=== PATIENT | male | born 1955 | race Caucasian/White ===

== ENCOUNTER 2017-03-12 15:26 | Outpatient (CLI) | payer BC | END 2017-03-12 15:27 | disposition home or self-care (01) | LOC: CTENTCT 15:26 | PROVIDERS: ATTEND Otolaryngology Plastic Surgery within the Head & Neck | DX: J32.9 Chronic sinusitis, unspecified (principal) | CPT/HCPCS: 70486 ==

== ENCOUNTER 2017-05-13 08:13 | Day surgery (SDC) | payer BC ==
[2017-05-12 12:52] VITALS: BMI 42.5
[2017-05-13] MEDS ORDERED: Oxymetazoline HCl 0.05% ( 15 ML ) ONE ×2 (10:25→11:50)
[2017-05-13] MEDS ORDERED: Midazolam HCl 2 mg/2 ml Vial ONE (10:59)
[2017-05-13 11:10] LABS: Anion Gap 13 mmol/L (10-20); BUN (Urea Nitrogen) 15 mg/dL (8.4-25.7); Calc. Creatinine Clearance 211 mL/min (70-130); Calcium 9.8 mg/dL (7.8-10.44); Carbon Dioxide 25 mmol/L (23-31); Chloride 104 mmol/L (98-107); Estimated GFR-MDRD Greater than 90; Glucose 108 mg/dL (80-115); Potassium 4.2 mmol/L (3.5-5.1); Sodium 138 mmol/L (136-145)
[2017-05-13] MEDS ORDERED: Fentanyl 250 MCG/5 ML VIAL ONE (11:23)
[2017-05-13] MEDS ORDERED: Lidocaine 1% w/Epinephrine 1:200K 30 ML VIAL ONE (11:50)
[2017-05-13] MEDS ORDERED: Succinylcholine Chloride 20 MG/ML 10 ml SYRINGE FS ONE (13:09)
[2017-05-13] MEDS ORDERED: PHENYLEPHRINE-NS 100 MCG/ML 10 ML SYRINGE ONE (13:09)
[2017-05-13] MEDS ORDERED: Ondansetron HCl/PF 4 MG/2 ML Vial ONE (13:09)
[2017-05-13] MEDS ORDERED: PROPOFOL 200 MG/20 ML VIAL ONE (13:09)
[2017-05-13] MEDS ORDERED: Dexamethasone 20 MG/5 ML VIAL ONE (13:09)
[2017-05-13] MEDS ORDERED: Lidocaine 1% PF 5 ML VIAL ONE (13:09)
[2017-05-13] MEDS ORDERED: Morphine 4 MG/ML VIAL ONE (14:25)
[2017-05-13] MEDS ORDERED: Hydrocodone-Acetamin 15 ML UDCUP ONE (15:28)
--- NOTE | 2017-05-14 13:25 | OP ---
DATE OF PROCEDURE: 05/13/2017 PREOPERATIVE DIAGNOSES: 1. Chronic rhinosinusitis. 2. Bilateral inferior turbinate hypertrophy. 3. Nasal obstruction. POSTOPERATIVE DIAGNOSES: 1. Chronic rhinosinusitis. 2. Bilateral inferior turbinate hypertrophy. 3. Nasal obstruction. PROCEDURES: 1. Bilateral endoscopic sinus surgery, total ethmoidectomies. 2. Bilateral endoscopic sinus surgery, maxillary antrostomies. 3. Bilateral endoscopic sinus surgery, frontal sinus. 4. Bilateral endoscopic sinus surgery, sphenoidotomies. 5. Bilateral inferior turbinate submucosal resection. SURGEON: Anam Jones M.D. ESTIMATED BLOOD LOSS: 20 mL. COMPLICATIONS: None. ANESTHESIA: GETA. DESCRIPTION OF PROCEDURE: The patient was taken to the operating room and placed supine on the table . General endotracheal anesthesia obtained by the Anesthesia staff. Following this, tube was secure d in the left lower lip and the patient was then placed in the beach chair position. Following this, Afrin pledgets were placed in the nasal cavity as the patient was prepped and draped for standard na felicia procedure. Following this, 1% lidocaine with 1:100,000 epinephrine was then injected into the in ferior turbinates via a 27-gauge needle as well as the lateral nasal wall of the middle turbinates. Following this, the 0-degree scope was advanced the middle turbinate. The middle turbinates were gen tly medialized using a [place] elevator, exposing the uncinate process bilaterally. Following this, th e uncinate process was anteriorly fractured using the ball-ended probe and was removed using the [facility] forceps and straight microdebrider. Following this, the ethmoidal bulla was identifie d bilaterally and then was punctured on its medial and inferior aspect and was removed using the [facility]. The grand lamella was then identified and was punctured into the posterior ethmo idal cells using the 0-degree microdebrider. Working from posterior to anterior, the ethmoidal cells were opened in a mucosal-sparing technique. Following this, the sphenoid sinus ostia was identified just medial and inferior to the attachment of the superior turbinate to the posterior nasal wall. T he ostia was noted to be nearly completely stenotic. This ostia was then punctured using the 0-degre e microdebrider bilaterally and was widened medially and inferiorly using the microdebrider. Followi juanita this, a 45-degree scope and the curved microdebrider were used to further identify the frontal sin us ostia and gently widened the ostia medially and anteriorly. Following this, inferior turbinates w ere then punctured with submucosal microdebrider and submucosal resection was performed of the anteri or and inferior portions of the inferior turbinates bilaterally. Following this, the nasal cavity wa s irrigated. MeroPacks were placed into the nasal cavity. The patient tolerated the procedure well.
== END 2017-05-13 16:00 | disposition home or self-care (01) ==
LOC: SDC 08:13
PROVIDERS: ATTEND Otolaryngology Plastic Surgery within the Head & Neck
PROC: 099R8ZZ Drainage of Left Maxillary Sinus, Via Natural or Artificial Opening Endoscopic (ICD-10-PCS; principal; 2017-05-13)
PROC: 099W8ZZ Drainage of Right Sphenoid Sinus, Via Natural or Artificial Opening Endoscopic (ICD-10-PCS; principal; 2017-05-13)
PROC: 099X8ZZ Drainage of Left Sphenoid Sinus, Via Natural or Artificial Opening Endoscopic (ICD-10-PCS; principal; 2017-05-13)
PROC: 099S8ZZ Drainage of Right Frontal Sinus, Via Natural or Artificial Opening Endoscopic (ICD-10-PCS; principal; 2017-05-13)
PROC: 099T8ZZ Drainage of Left Frontal Sinus, Via Natural or Artificial Opening Endoscopic (ICD-10-PCS; principal; 2017-05-13)
PROC: 09TL8ZZ Resection of Nasal Turbinate, Via Natural or Artificial Opening Endoscopic (ICD-10-PCS; principal; 2017-05-13)
PROC: 099Q8ZZ Drainage of Right Maxillary Sinus, Via Natural or Artificial Opening Endoscopic (ICD-10-PCS; principal; 2017-05-13)
PROC: 09TV8ZZ Resection of Left Ethmoid Sinus, Via Natural or Artificial Opening Endoscopic (ICD-10-PCS; principal; 2017-05-13)
PROC: 09TU8ZZ Resection of Right Ethmoid Sinus, Via Natural or Artificial Opening Endoscopic (ICD-10-PCS; principal; 2017-05-13)
DX: J32.9 Chronic sinusitis, unspecified (principal); J34.3 Hypertrophy of nasal turbinates; J34.89 Other specified disorders of nose and nasal sinuses; J30.9 Allergic rhinitis, unspecified; I10 Essential (primary) hypertension; E78.5 Hyperlipidemia, unspecified; K21.9 Gastro-esophageal reflux disease without esophagitis; I67.1 Cerebral aneurysm, nonruptured; Z88.8 Allergy status to other drugs, medicaments and biological substances; Z79.51 Long term (current) use of inhaled steroids; Z79.899 Other long term (current) drug therapy
CPT/HCPCS: 80048; 93005; 93010; 96374; J1100; J2001; J2250; J2270; J2405; J2704; J3010

== ENCOUNTER 2017-08-25 08:23 | Outpatient (CLI) | payer BC ==
--- NOTE | 2017-08-25 09:55 | CT ---
CT HEAD NONCONTRAST CTA [place] WITH 3D VOLUME RENDERING: CLINICAL HISTORY: Intracranial hemorrhage, fall. COMPARISON: Reference is made to prior CTA head 12/05/11. FINDINGS: There is no evidence of ventriculomegaly, mass effect, midline shift, or acute intracranial hemorrhag e. There is minimal mucosal thickening of the paranasal sinuses and decreased pneumatization of righ t mastoid air cells. Prior bilateral maxillary antrostomy is noted. The previously described anterior communicating artery aneurysm has slightly increased in volume now measuring approximately 3-4 mm in size comparing to 2 mm size range on the prior exam. The bilateral middle cerebral arteries and anterior cerebral arteries are patent. Small-caliber bilateral POLICE MAGISTRATE rem ain patent. The imaged vertebrobasilar system reveals no significant stenosis. Otherwise, no additi onal significant interval detrimental change from prior exam. IMPRESSION: Slight interval size progression of anterior communicating artery aneurysm, now measuring 3-4 mm. Re commend continued imaging followup. POS: YAW
== END 2017-08-25 08:24 | disposition home or self-care (01) ==
LOC: TBSIIMAG 08:23
PROVIDERS: ATTEND Neurological Surgery
DX: I67.1 Cerebral aneurysm, nonruptured (principal)
CPT/HCPCS: 70496; 82565

== ENCOUNTER 2017-12-21 06:01 | Day surgery (SDC) | payer BC ==
[2017-12-18 09:13] VITALS: BMI 41.2
[2017-12-21] MEDS ORDERED: EPINEPHrine 1 MG/ML AMP ONE (06:39)
[2017-12-21] MEDS ORDERED: Lidocaine 1% w/Epinephrine 1:100K 30 ML VIAL ONE (06:39)
[2017-12-21] MEDS ORDERED: Bacitracin Zinc Ointment 30 gm TUBE ONE (06:39)
[2017-12-21] MEDS ORDERED: Bupivacaine/Epinephrine 0.25% 30 ML VIAL ONE (06:39)
[2017-12-21] MEDS ORDERED: Sodium Chloride 0.9% 10 ML ONE (06:39)
[2017-12-21] MEDS ORDERED: Fentanyl 250 MCG/5 ML VIAL ONE (09:18)
[2017-12-21] MEDS ORDERED: Gelfilm 1 EA Packet ONE (10:46)
--- NOTE | 2017-12-21 12:05 | OP ---
DATE OF PROCEDURE: 12/21/2017 PREOPERATIVE DIAGNOSIS: Left tympanic membrane perforation. PROCEDURE: 1. Left tympanoplasty. 2. Microscopic surgical procedure. POSTOPERATIVE DIAGNOSIS: Left tympanic membrane perforation. SURGEON: Miles Correa M.D. ANESTHESIA: General. COMPLICATIONS: None. ESTIMATED BLOOD LOSS: None. SPECIMENS: None. DRAWBRIDGE OPERATOR: None. DISPOSITION: Stable to recovery room. SUMMARY: After lengthy discussion about previous reactions to epinephrine, I felt that this was prob ably secondary to nasal cocaine intraoperatively. The patient underwent a left transcanal tympanopla sty. Originally felt we may need to do a postauricular approach with a mastoidectomy, but we were ab le to do an underlay graft with all edges approximated 360 degrees and the malleus and incus moved we ll. The scutum was not curetted. The chorda tympani unmolested. However, could see the malleus, in cus and stapes suprastructure mobile with palpation. Underlay technique with section of the tensor t ympani. PROCEDURE IN DETAIL: 1. Left tympanoplasty: After informed consent was obtained, the patient taken to the operating room and placed in the supine position. General endotracheal anesthetic was administered. Table was rot ated 180 degrees. Left ear was injected postauricular and transcanal with 0.25% Marcaine with epinep hrine. With the left ear prepped and draped in a sterile fashion the microscope was brought in view and irrigated with copious amounts of saline in the ear canal. There had been a cotton ball placed d uring the prep phase. Injected the vascular strip with 1% lidocaine with epinephrine, approximately 1 mL. Transcanal, the tympanomeatal flap was elevated from 12 and 6 o'clock position, carried down t o the annulus, but not entered the middle ear. Using a Rajan needle to rim the perforation and then we placed a clamp closed to the canal was at the 11 o'clock position. The bougie scissors cut the st apedial tendon and the graft which had been harvested from a super auricular incision placed in under lay over Gelfilm and Gelfoam lateral. There was only a small amount of squamous tissue noted under t he malleus that was removed as well. With the tympanomeatal flap totally elevated just prior to plac ement of Gelfilm and Gelfoam and the graft could see the middle ear space to be clean and dry. With the flap placed back down had excellent 360 degree coverage with a flap bulging around the margins of the perforation throughout. Gelfilm and Gelfoam was placed lateral. Bacitracin cotton ball applied . The super auricular incision had been closed with 3-0 Monocryl and Dermabond for the skin. 2. Microscopic surgical procedure: Throughout the entirety of the operation microscope was an integ ral part of procedure using to 14 power of high illumination. The patient tolerated this procedure well and was turned over to Anesthesia in stable condition.
[2017-12-21] MEDS ORDERED: HYDROcodone/Acetaminophen 5/325 mg Tablet ONE (13:11)
[2017-12-21] MEDS ORDERED: Ondansetron ODT 4 MG TAB ONE (13:15)
--- NOTE | 2017-12-22 08:48 | EKG ---
Test Reason : PREOP Blood Pressure : / mmHG Vent. Rate : 080 BPM Atrial Rate : 091 BPM P-R Int : 190 ms QRS Dur : 088 ms QT Int : 378 ms P-R-T Axes : 045 003 022 degrees QTc Int : 435 ms Sinus rhythm with Premature atrial complexes Otherwise normal ECG When compared with ECG of 13-MAY-2017 10:50, Vent. rate has increased BY [address] Lyndon ASHLEY ([id number]) on 12/22/2017 8:48:08 AM Referred By: SARAI Confirmed By:DR. Lyndon ASHLEY
== END 2017-12-21 13:30 | disposition home or self-care (01) ==
LOC: SDC 06:01
PROVIDERS: ATTEND Otolaryngology Otology & Neurotology
PROC: 09B1XZZ Excision of Left External Ear, External Approach (ICD-10-PCS; principal; 2017-12-21)
PROC: 09R877Z Replacement of Left Tympanic Membrane with Autologous Tissue Substitute, Via Natural or Artificial Opening (ICD-10-PCS; principal; 2017-12-21)
DX: H72.92 Unspecified perforation of tympanic membrane, left ear (principal); Z79.51 Long term (current) use of inhaled steroids; Z79.899 Other long term (current) drug therapy; Z88.8 Allergy status to other drugs, medicaments and biological substances
CPT/HCPCS: 93005; 93010; J0171; J2001; J3010; J3490; Q0162

== ENCOUNTER 2018-04-21 01:21 | Outpatient (CLI) | payer BC ==
[2018-04-21 12:06] LABS: #Basophils 0.1 thou/uL (0.0-0.2); #Eosinphils 0.2 thou/uL (0.0-0.7); #Lymphocytes 1.7 thou/uL (1.20-3.40); #Monocytes 0.8 thou/uL (0.11-0.59); #Neutrophils 4.2 thou/uL (1.40-6.50); %Basophils 0.8 % (0.0-1.0); %Eosinophils 3.2 % (0.0-10.0); %Lymphocytes 23.9 % (21.0-51.0); %Monocytes 11.5 % (0.0-10.0); %Neutrophils 60.7 % (42.0-75.0); Hemoglobin 15.1 g/dL (14.0-18.0); Mean Corpuscular HGB CONC 32.9 g/dL (32.0-36.0); Mean Corpuscular Hemoglobin 30.7 pg (27.0-31.0); Mean Corpuscular Volume 93.3 fL (78.0-98.0); Platelet Count 165 thou/uL (130-400); RBC Distribution Width 13.4 % (11.5-14.5); Red Blood Cell (RBC) Count 4.92 mill/uL (4.70-6.10); White Blood Cell (WBC) Count 6.9 thou/uL (4.8-10.8)
[2018-04-21 12:27] LABS: Anion Gap 11 mmol/L (10-20); BUN (Urea Nitrogen) 14 mg/dL (8.4-25.7); Calc. Creatinine Clearance 0 mL/min (70-130); Calcium 9.7 mg/dL (7.8-10.44); Carbon Dioxide 27 mmol/L (23-31); Chloride 105 mmol/L (98-107); Estimated GFR-MDRD Greater than 90; Glucose 108 mg/dL (80-115); Potassium 4.1 mmol/L (3.5-5.1); Sodium 139 mmol/L (136-145)
--- NOTE | 2018-04-21 18:45 | EKG ---
Test Reason : Blood Pressure : / mmHG Vent. Rate : 054 BPM Atrial Rate : 054 BPM P-R Int : 180 ms QRS Dur : 086 ms QT Int : 428 ms P-R-T Axes : 034 010 020 degrees QTc Int : 405 ms Poor data quality, interpretation may be adversely affected Sinus bradycardia with marked sinus arrhythmia Otherwise normal ECG When compared with ECG of 21-DEC-2017 06:24, Premature atrial complexes are no longer Present Vent. rate has decreased BY [address] Newton MCGINNIS ([id number]) on 04/21/2018 6:45:01 PM Referred By: LALA Confirmed By:DR. Newton MCGINNIS
== END 2018-04-21 01:22 | disposition home or self-care (01) ==
LOC: LABBT 01:21
PROVIDERS: ATTEND Orthopaedic Surgery
DX: Z01.818 Encounter for other preprocedural examination (principal); S83.207A Unspecified tear of unspecified meniscus, current injury, left knee, initial encounter
CPT/HCPCS: 80048; 85025; 93005; 93010

== ENCOUNTER 2018-04-23 07:27 | Day surgery (SDC) | payer BC ==
[2018-04-21 10:11] VITALS: BMI 41.7
[2018-04-23] MEDS ORDERED: PROPOFOL 20 ML ONE (07:46)
[2018-04-23] MEDS ORDERED: Fentanyl 100 MCG/2 ML VIAL ONE ×3 (08:24→11:25)
[2018-04-23] MEDS ORDERED: Lidocaine 2% Jelly 5 ML TUBE ONE (08:24)
[2018-04-23] MEDS ORDERED: Ondansetron PF 4 MG/2 ML Vial ONE ×2 (09:13→17:07)
[2018-04-23] MEDS ORDERED: Meperidine HCl/PF 25 MG/ML VIAL ONE (10:56)
[2018-04-23] MEDS ORDERED: Bupivacaine HCl 0.5%/Epinephrine 1:200,000/PF 30 ml Vial ONE (16:34)
[2018-04-23] MEDS ORDERED: Lidocaine 2% w/Epinephrine 1:200K 20 ML VIAL ONE (16:34)
[2018-04-23] MEDS ORDERED: Lidocaine 1% PF 5 ML VIAL ONE (17:07)
[2018-04-23] MEDS ORDERED: PROPOFOL 200 MG/20 ML VIAL ONE (17:07)
--- NOTE | 2018-04-26 10:11 | OP ---
DATE OF PROCEDURE: 04/23/2018 PREOPERATIVE DIAGNOSIS: Left knee lateral meniscus tear with parameniscal cyst. POSTOPERATIVE DIAGNOSIS: Left knee lateral meniscus tear with parameniscal cyst. PROCEDURE PERFORMED: 1. Left knee arthroscopy with partial lateral meniscectomy. 2. Open repair of lateral meniscus. BATTERY WRECKER OPERATOR: None. BLOOD LOSS: Minimal. COMPLICATIONS: None. ANESTHESIA: He had general anesthetic as well as local knee block. DISPOSITION: He went to recovery room in stable condition. IMPLANTS: There were no implants. INDICATIONS: A 62-year-old male comes in complaining of significant pain, swelling and catching of the knee. He has failed nonoperative treatment and wanted to have surgery. DESCRIPTION OF PROCEDURE: After all proper consent forms were explained and signed, he was taken back to the operative room and at this time was given general anesthetic. Once the anesthesia was appropriate, tourniquet was placed in the left thigh and leg was placed in the arthroscopic leg hardy. The limb was prepped draped in standard surgical fashion. The limb was exsanguinated and tourniquet taken up to 300 mmHg. Inferolateral portal was established. Scope was placed into the knee joint. A needle localization technique was then used to make our medial portal. Diagnostic arthroscopy commenced in the notch. ACL and PCL were probed, found to be intact. The medial compartment showed the femur, tibia and meniscus upon probing to be intact. There was a small area on the tibial plateau, which had some grade 2 chondromalacia. No significant treatment was needed. Lateral compartment was evaluated. Significant degenerative tear including horizontal cleavage tear of the body of the lateral meniscus was noted. Partial meniscectomy was performed of the unstable tissue and the shaver was introduced into the cleavage component. There was a significant amount of oily fluid, which was evacuated from the joint, which was felt to be from the cyst. A needle was then placed percutaneously from the outside portion of the skin using transillumination directly into the horizontal cleavage tear. This was used for later open repair marking. At this time, we then did also note a small cyst along the anterior horn of the lateral meniscus. This also was debrided with a shaver to get rid of this. The patellofemoral joint showed the trochlear to be in good condition. The patella had some grade 2 chondromalacia. No loose bodies were noted in the gutters nor was there any loose bodies in the suprapatellar pouch. At this time, scope was removed and the knee was drained. We then turned our attention to the open repair. Incision was made with a 15 blade obliquely along the lateral joint line where the needle had been placed. We cut down through skin. Bovie was used to clear any brisk venous bleeding. We then got to the IT band and opened this up. We this from the underlying tissue. We were then able to follow the hole from the needle directly into the horizontal cleavage component. Joint fluid confirmed that this went directly into the joint. This tissue was debrided sharply of any of the yellow poor appearing tissue and at this time, we then took a #1 Ethibond suture and placed multiple horizontal sutures through the outside portion of the meniscus and the capsule. Once this was done, we did look inside the knee and upon probing found that our horizontal cleavage component had been closed down. Again, the scope was removed. The knee was drained for one more time. We then thoroughly irrigated our wound along the lateral aspect of the knee. This was dried. The IT band was closed with 2-0 Vicryl and nylon sutures were used on skin. Portals were closed with simple nylon stitch as well. Bulky sterile dressing was applied at this time. The patient was then awakened and taken to recovery room in stable condition. All counts were correct at the end of the case and he did receive preoperative IV antibiotics. Job ID: [id number]
== END 2018-04-23 13:25 | disposition home or self-care (01) ==
LOC: SDC 07:27
PROVIDERS: ATTEND Orthopaedic Surgery
PROC: 0SQD0ZZ Repair Left Knee Joint, Open Approach (ICD-10-PCS; principal; 2018-04-23)
PROC: 0SBD4ZZ Excision of Left Knee Joint, Percutaneous Endoscopic Approach (ICD-10-PCS; principal; 2018-04-23)
DX: S83.282A Other tear of lateral meniscus, current injury, left knee, initial encounter (principal); M25.862 Other specified joint disorders, left knee; M22.42 Chondromalacia patellae, left knee; G89.18 Other acute postprocedural pain; I10 Essential (primary) hypertension; E78.5 Hyperlipidemia, unspecified; K21.9 Gastro-esophageal reflux disease without esophagitis; Z79.51 Long term (current) use of inhaled steroids; Z79.899 Other long term (current) drug therapy; Z88.8 Allergy status to other drugs, medicaments and biological substances; Z98.890 Other specified postprocedural states
CPT/HCPCS: J0670; J2001; J2175; J2405; J2704; J3010

== ENCOUNTER 2018-05-12 10:09 | Day surgery (SDC) | payer BC ==
[2018-05-11 15:57] VITALS: BMI 41.7
[2018-05-12] MEDS ORDERED: Oxymetazoline HCl 0.05% ( 15 ML ) ONE ×2 (11:17→12:56)
[2018-05-12 12:02] LABS: Anion Gap 12 mmol/L (10-20); BUN (Urea Nitrogen) 17 mg/dL (8.4-25.7); Calc. Creatinine Clearance 219 mL/min (70-130); Calcium 9.7 mg/dL (7.8-10.44); Carbon Dioxide 25 mmol/L (23-31); Chloride 107 mmol/L (98-107); Estimated GFR-MDRD Greater than 90; Glucose 115 mg/dL (80-115); Sodium 140 mmol/L (136-145)
[2018-05-12] MEDS ORDERED: Lidocaine 1% w/Epinephrine 1:100K 20 ML VIAL ONE (12:56)
[2018-05-12] MEDS ORDERED: Lidocaine 1% (PF) 30 ML VIAL ONE (13:02)
[2018-05-12] MEDS ORDERED: Midazolam HCl 2 mg/2 ml Vial ONE (13:06)
[2018-05-12] MEDS ORDERED: Fentanyl 100 MCG/2 ML VIAL ONE ×2 (13:06→14:10)
[2018-05-12] MEDS ORDERED: Dexamethasone 20 MG/5 ML VIAL ONE (16:04)
[2018-05-12] MEDS ORDERED: Ondansetron PF 4 MG/2 ML Vial ONE (16:04)
[2018-05-12] MEDS ORDERED: PROPOFOL 200 MG/20 ML VIAL ONE (16:04)
[2018-05-12] MEDS ORDERED: Lidocaine 1% PF 5 ML VIAL ONE (16:04)
--- NOTE | 2018-05-13 08:41 | OP ---
DATE OF PROCEDURE: 05/12/2018 PREOPERATIVE DIAGNOSES: 1. Chronic rhinosinusitis. 2. Bilateral nasal adhesions. 3. Bilateral eustachian tube dysfunction. POSTOPERATIVE DIAGNOSES: 1. Chronic rhinosinusitis. 2. Bilateral nasal adhesions. 3. Bilateral eustachian tube dysfunction. PROCEDURES PERFORMED: 1. Bilateral endoscopic sinus surgery, total ethmoidectomies with removal of tissue. 2. Bilateral endoscopic sinus surgery, frontal sinusotomies with removal of tissue. 3. Nasopharyngoscopy. ESTIMATED BLOOD LOSS: 20 mL. COMPLICATIONS: None. ANESTHESIA: GETA. DESCRIPTION OF PROCEDURE: The patient was taken to the operating room, placed supine on the table. General endotracheal anesthesia was obtained by the Anesthesia staff. Tube was secured in the left lower lip. Then, the patient was placed in a beach chair position. Following this, Afrin pledgets were placed in the nasal cavity as the patient was prepped and draped for standard nasal procedures. Following this, the 0-degree scope was then advanced in the nasal cavity. 1% lidocaine with 1:100,000 epinephrine was made into the lateral nasal wall and middle turbinates bilaterally. There was nasal adhesions and scar bands that had occurred in the anterior ethmoidal area causing scarring and obliteration of some of the anterior ethmoidal cells. There was also some spongy osteomyelitis bone present in these areas as well. Using 0 degree of microdebrider and a curved microdebrider, the anterior ethmoidal cells were reopened as well as the posterior ethmoidal cells. Cutting any scar bands that were identified and also removal of hypertrophic bone tissue. Following this, 45 degree scope and the curved microdebrider were used to further open the frontal sinus ostia bilaterally as well. Bone tissue and scar bands were removed from these areas. Following this, a 0-degree scope was used to examine the nasopharynx and the eustachian tube orifice was noted to be draining a thick material from the left side and eustachian tube dilation device was then inserted into the eustachian tube, dilated for a total of 2 minutes bilaterally, then removed. The patient tolerated the procedure well. Job ID: [id number]
== END 2018-05-12 16:30 | disposition home or self-care (01) ==
LOC: SDC 10:09
PROVIDERS: ATTEND Otolaryngology Plastic Surgery within the Head & Neck
PROC: 09TU8ZZ Resection of Right Ethmoid Sinus, Via Natural or Artificial Opening Endoscopic (ICD-10-PCS; principal; 2018-05-12)
PROC: 09BS8ZZ Excision of Right Frontal Sinus, Via Natural or Artificial Opening Endoscopic (ICD-10-PCS; principal; 2018-05-12)
PROC: 09BT8ZZ Excision of Left Frontal Sinus, Via Natural or Artificial Opening Endoscopic (ICD-10-PCS; principal; 2018-05-12)
PROC: 09TV8ZZ Resection of Left Ethmoid Sinus, Via Natural or Artificial Opening Endoscopic (ICD-10-PCS; principal; 2018-05-12)
DX: J32.9 Chronic sinusitis, unspecified (principal); J34.89 Other specified disorders of nose and nasal sinuses; H69.80 Other specified disorders of Eustachian tube, unspecified ear; M86.8X8 Other osteomyelitis, other site; H91.90 Unspecified hearing loss, unspecified ear; I10 Essential (primary) hypertension; E78.5 Hyperlipidemia, unspecified; K21.9 Gastro-esophageal reflux disease without esophagitis; I67.1 Cerebral aneurysm, nonruptured; J30.9 Allergic rhinitis, unspecified; Z79.51 Long term (current) use of inhaled steroids; Z79.899 Other long term (current) drug therapy; Z88.5 Allergy status to narcotic agent; Z88.8 Allergy status to other drugs, medicaments and biological substances; Z98.890 Other specified postprocedural states
CPT/HCPCS: 80048; J0131; J1100; J2001; J2250; J2405; J2704; J3010

== ENCOUNTER 2020-04-24 11:15 | Outpatient (CLI) | payer MEDICARE, OTHER ==
[2020-04-24 14:36] LABS: #Basophils 0.1 10x3/uL (0.0-0.2); #Eosinphils 0.1 10x3/uL (0.0-0.5); #Monocytes 0.8 10x3/uL (0.0-1.1); %Basophils 0.9 % (0.0-2.0); %Eosinophils 2.4 % (0.0-6.0); %Lymphocytes 24.6 % (18.0-47.0); %Monocytes 15.1 % (0.0-10.0); %Neutrophils 56.6 % (40.0-75.0); Hemoglobin 15.9 g/dL (13.5-17.5); Mean Corpuscular HGB CONC 33.3 g/dL (32.0-36.0); Mean Corpuscular Hemoglobin 29.8 pg (27.0-33.0); Mean Corpuscular Volume 89.3 fl (81.2-95.1); Mean Platelet Volume 11.5 fl (7.4-10.4); Platelet Count 155 10x3/uL (150-450); RBC Distribution Width 13.6 % (11.5-14.5); Red Blood Cell (RBC) Count 5.34 10x6/uL (4.32-5.72); White Blood Cell (WBC) Count 5.4 10x3/uL (3.5-10.5)
[2020-04-24 14:49] LABS: Anion Gap 15 mmol/L (10-20); BUN (Urea Nitrogen) 19 mg/dL (8.4-25.7); Calc. Creatinine Clearance 0 mL/min (70-130); Calcium 9.2 mg/dL (7.8-10.44); Carbon Dioxide 25 mmol/L (23-31); Chloride 104 mmol/L (98-107); Glucose 63 mg/dL (80-115); Potassium 4.9 mmol/L (3.5-5.1); Sodium 139 mmol/L (136-145)
[2020-04-25 01:43] LABS: SARS-CoV-2 PCR by NAA Not Detected (NotDetected)
== END 2020-04-24 11:16 | disposition home or self-care (01) ==
LOC: LABBT 11:15
PROVIDERS: ATTEND Orthopaedic Surgery Hand Surgery
DX: Z01.818 Encounter for other preprocedural examination (principal); D48.7 Neoplasm of uncertain behavior of other specified sites; Z20.822 Contact with and (suspected) exposure to COVID-19
CPT/HCPCS: 80048; 85025; U0003; U0005; 87635; 93005; 93010

== ENCOUNTER 2020-04-27 07:33 | Day surgery (SDC) | payer MEDICARE, OTHER ==
[2020-04-25 14:52] VITALS: BMI 43.4
[2020-04-27] MEDS ORDERED: Bupivacaine PF 0.5% 30 ML VIAL ONE (09:24)
[2020-04-27] MEDS ORDERED: Betamet Acet/Betamet Na Ph 30 MG/5 ML VIAL ONE (09:24)
[2020-04-27] MEDS ORDERED: Sodium Chloride 0.9% 10 ML ONE (09:25)
[2020-04-27] MEDS ORDERED: Bacitracin Zinc Ointment 30 gm TUBE ONE (09:25)
[2020-04-27] MEDS ORDERED: Fentanyl 100 MCG/2 ML VIAL ONE (10:03)
[2020-04-27] MEDS ORDERED: Rocuronium Bromide 10 MG/ML (10ML VIAL) ONE (10:12)
[2020-04-27] MEDS ORDERED: Lidocaine 1% PF 5 ML VIAL ONE (10:12)
[2020-04-27] MEDS ORDERED: PROPOFOL 200 MG/20 ML VIAL ONE (10:12)
[2020-04-27] MEDS ORDERED: Ondansetron PF 4 MG/2 ML Vial ONE (10:12)
[2020-04-27] MEDS ORDERED: Dexamethasone 20 MG/5 ML VIAL ONE (10:12)
[2020-04-27] MEDS ORDERED: SUGAMMADEX SODIUM 200 MG/2 ML VIAL ONE (10:43)
[2020-04-27] MEDS ORDERED: Ketorolac Tromethamine 30 MG/ML VIAL ONE (11:09)
== END 2020-04-27 13:03 | disposition home or self-care (01) ==
LOC: SDC 07:33
PROVIDERS: ATTEND Orthopaedic Surgery Hand Surgery
PROC: 0LB70ZZ Excision of Right Hand Tendon, Open Approach (ICD-10-PCS; principal; 2020-04-27)
PROC: 0LN70ZZ Release Right Hand Tendon, Open Approach (ICD-10-PCS; 2020-04-27)
DX: M67.441 Ganglion, right hand (principal); M65.341 Trigger finger, right ring finger; M18.0 Bilateral primary osteoarthritis of first carpometacarpal joints; I10 Essential (primary) hypertension; E78.5 Hyperlipidemia, unspecified; K21.9 Gastro-esophageal reflux disease without esophagitis; G47.33 Obstructive sleep apnea (adult) (pediatric); Z79.899 Other long term (current) drug therapy; Z88.5 Allergy status to narcotic agent; Z88.8 Allergy status to other drugs, medicaments and biological substances
CPT/HCPCS: 88304; J0690; J0702; J1100; J1885; J2405; J2704; J3010; J3490; S0020

== ENCOUNTER 2020-08-01 10:05 | Outpatient (CLI) | payer MEDICARE, OTHER | END 2020-08-01 10:06 | disposition home or self-care (01) | LOC: BICULT 10:05 | PROVIDERS: ATTEND Internal Medicine Gastroenterology | DX: R11.0 Nausea (principal); R94.5 Abnormal results of liver function studies; K76.0 Fatty (change of) liver, not elsewhere classified | CPT/HCPCS: 76705 ==

== ENCOUNTER 2024-03-18 12:32 | Outpatient (CLI) | payer MEDICARE | END 2024-03-18 12:33 | disposition home or self-care (01) | LOC: LABBT 12:32 | PROVIDERS: ATTEND Internal Medicine Cardiovascular Disease | DX: Z01.810 Encounter for preprocedural cardiovascular examination (principal); I48.0 Paroxysmal atrial fibrillation; I67.1 Cerebral aneurysm, nonruptured | CPT/HCPCS: 93005; 93010 ==

== ENCOUNTER 2024-03-21 08:22 | Inpatient (IN) | payer MEDICARE ==
[2024-03-18 12:37] VITALS: BMI 36.6
[2024-03-18 13:39] LABS: #Basophils 0.05 10x3/uL (0.0-0.2); %Basophils 0.9 % (0.0-1.0); %Eosinophils 1.7 % (0.0-10.0); %Lymphocytes 25.3 % (21.0-51.0); %Monocytes 12.9 % (0.0-10.0); Hematocrit 41.5 % (42.0-52.0); Hemoglobin 14.1 g/dL (14.0-18.0); Mean Corpuscular Hemoglobin 30.1 pg (27.0-31.0); Mean Corpuscular Volume 88.7 fL (78.0-98.0); Mean Platelet Volume 10.7 fL (7.4-10.4); Platelet Count 163 10x3/uL (130-400); RBC Distribution Width 14.3 % (11.5-14.5); Red Blood Cell (RBC) Count 4.68 mill/uL (4.70-6.10)
[2024-03-18 13:52] LABS: INR-International Normal Ratio 1.2; Prothrombin Time 14.7 sec (12.0-14.7)
[2024-03-18 13:53] LABS: PTT 44.3 sec (22.9-36.1)
[2024-03-18 13:59] LABS: ALT (SGPT) 27 U/L (Less than 45); AST (SGOT) 26 U/L (11-34); Albumin 4.1 g/dL (3.1-4.5); Alkaline Phosphatase 87 U/L (40-110); Anion Gap 14 mmol/L (10-20); BUN (Urea Nitrogen) 20 mg/dL (8.4-25.7); Bilirubin, Total 0.8 mg/dL (0.3-1.2); Calc. Creatinine Clearance 0 mL/min (70-130); Calcium 9.4 mg/dL (7.8-10.44); Carbon Dioxide 24 mmol/L (23-31); Chloride 107 mmol/L (98-107); Estimated GFR 98; Glucose 99 mg/dL (80-115); Potassium 4.5 mmol/L (3.5-5.1); Protein, Total 7.1 g/dL (5.8-8.1); Sodium 140 mmol/L (136-145)
[2024-03-21] MEDS ORDERED: Iopamidol 370 76% 100 ML VIAL ONE ×2 (10:21)
[2024-03-21] MEDS ORDERED: Heparin 10,000 UNITS/ 10 ML VIAL ONE (15:01)
[2024-03-21] MEDS ORDERED: Protamine Sulfate 50 MG/5 ML VIAL ONE ×2 (15:01→17:07)
[2024-03-21] MEDS ORDERED: Clindamycin/D5W 900 mg/50 ml Premix Bag ONE (15:01)
[2024-03-21] MEDS ORDERED: fentaNYL 50 mcg/mL 1 mL Vial ONE (16:01)
[2024-03-21] MEDS ORDERED: SUGAMMADEX SODIUM 200 MG/2 ML VIAL ONE (16:01)
[2024-03-21] MEDS ORDERED: Rocuronium Bromide 10 MG/ML (10ML VIAL) ONE (16:01)
[2024-03-21] MEDS ORDERED: Ondansetron PF 4 MG/2 ML Vial ONE (16:01)
[2024-03-21] MEDS ORDERED: Lidocaine 1% PF 5 ML VIAL ONE (16:02)
[2024-03-21] MEDS ORDERED: ePHEDrine Sulfate 50 MG/10 ML VIAL ONE (16:15)
[2024-03-21] MEDS ORDERED: Dexamethasone 20 MG/5 ML VIAL ONE (16:15)
[2024-03-21] MEDS ORDERED: PROPOFOL 200 MG/20 ML VIAL ONE (16:15)
[2024-03-21] MEDS ORDERED: PHENYLEPHRINE-NS 100 MCG/ML 10 ML SYRINGE ONE (16:15)
[2024-03-21] MEDS ORDERED: Ciprofloxacin Lactate D5W 400 mg (200 mL) BAG ONE (16:16)
== END 2024-03-21 20:27 | disposition home or self-care (01) | DRG 274 ==
LOC: SURG A 12:10
PROVIDERS: ADMIT Internal Medicine Cardiovascular Disease; ATTEND Internal Medicine Cardiovascular Disease
PROC: 02L73DK Occlusion of Left Atrial Appendage with Intraluminal Device, Percutaneous Approach (ICD-10-PCS; principal; 2024-03-21)
PROC: B24BZZ4 Ultrasonography of Heart with Aorta, Transesophageal (ICD-10-PCS; 2024-03-21)
DX: I48.19 Other persistent atrial fibrillation (principal); Z00.6 Encounter for examination for normal comparison and control in clinical research program; I25.10 Atherosclerotic heart disease of native coronary artery without angina pectoris; I10 Essential (primary) hypertension; G47.33 Obstructive sleep apnea (adult) (pediatric); Z79.01 Long term (current) use of anticoagulants; I49.5 Sick sinus syndrome; Z79.899 Other long term (current) drug therapy; Z88.8 Allergy status to other drugs, medicaments and biological substances; Z98.890 Other specified postprocedural states; I67.1 Cerebral aneurysm, nonruptured
CPT/HCPCS: 33340; 80053; 85025; 85347; 85610; 85730; 86850; 86900; 86901; 93306; 93312; C1759; C1760; C1889; C1894; J0744; J1100; J1644; J2405; J2704; J2720; J3010; J3490; Q9967

== ENCOUNTER 2024-11-23 09:35 | Outpatient (CLI) | payer MEDICARE ==
[2024-11-23 10:39] LABS: #Basophils 0.06 10x3/uL (0.0-0.2); #Eosinophils 0.20 10x3/uL (0.0-0.7); #Monocytes 0.72 10x3/uL (0.11-0.59); #Neutrophils 3.71 10x3/uL (1.40-6.50); %Basophils 1.0 % (0.0-1.0); %Eosinophils 3.2 % (0.0-10.0); %Lymphocytes 23.6 % (21.0-51.0); %Monocytes 11.7 % (0.0-10.0); %Neutrophils 60.0 % (42.0-75.0); Hematocrit 42.1 % (42.0-52.0); Hemoglobin 13.9 g/dL (14.0-18.0); Mean Corpuscular Hemoglobin 29.4 pg (27.0-31.0); Mean Corpuscular Volume 89.2 fL (78.0-98.0); Platelet Count 153 10x3/uL (130-400); Red Blood Cell (RBC) Count 4.72 mill/uL (4.70-6.10); White Blood Cell (WBC) Count 6.18 10x3/uL (4.8-10.8)
[2024-11-23 10:44] LABS: Bacteria/HPF None Seen HPF (None Seen); Glucose, Urine (Dipstick) Normal (Negative); Leukocyte Negative Leu/uL (Negative); Protein, Urine (Dipstick) Negative (Neg-Trace); RBC/HPF 0-3 HPF (0-3); Specific Gravity, Urine 1.017 (1.002-1.036); WBC/HPF 0-3 HPF (0-3)
[2024-11-23 10:54] LABS: INR-International Normal Ratio 1.0; PTT 42.0 sec (22.9-36.1); Prothrombin Time 13.7 sec (12.0-14.7)
[2024-11-23 11:10] LABS: Anion Gap 9 mmol/L (10-20); BUN (Urea Nitrogen) 15 mg/dL (8.4-25.7); Calc. Creatinine Clearance 0 mL/min (70-130); Calcium 9.4 mg/dL (7.8-10.44); Carbon Dioxide 28 mmol/L (23-31); Chloride 106 mmol/L (98-107); Glucose 97 mg/dL (80-115); Potassium 4.4 mmol/L (3.5-5.1); Sodium 139 mmol/L (136-145)
== END 2024-11-23 09:36 | disposition home or self-care (01) ==
LOC: LABBT 09:35
PROVIDERS: ATTEND Urology
DX: Z01.818 Encounter for other preprocedural examination (principal); N40.1 Benign prostatic hyperplasia with lower urinary tract symptoms; I47.10 Supraventricular tachycardia, unspecified; R35.0 Frequency of micturition
CPT/HCPCS: 80048; 81001; 85025; 85610; 85730; 86850; 86900; 86901; 87086; 93005; 93010